=== PATIENT | male | born 1975 | race Caucasian/White ===

== ENCOUNTER 2022-10-28 15:01 | Emergency (ER) | payer MEDICAID, SELFPAY ==
[2022-10-28 15:09] VITALS: BP 128/85; PULSE 74; RESP 18; TEMP 36.6; O2SAT 97
--- NOTE | 2022-10-28 15:12 | ED_ITS ---
HPI - General Adult General Chief complaint: Extremity Pain/Injury, Lower Stated complaint: right ankle injury Time Seen by Provider: 10/28/22 15:07 Source: patient Mode of arrival: ambulatory Limitations: no limitations History of Present Illness HPI narrative: [age] year male coming in today after a right ankle injury. He stepped off a boulder onto the ground, right into a hole where he felt immediate pain in the right ankle. He complains of swelling on the lateral ankle. He states that he was able to walk but it was really very uncomfortable for him. The pain has progressively gotten worse over the last couple of hours. Related Data Allergies Allergy/AdvReac Type Severity Reaction Status Date / Time No Known Drug Allergies Allergy Verified 10/28/22 15:08 Review of Systems Status of ROS: Reports: 6 or more systems reviewed and unremarkable except as noted in History and below [facility] Social History Smoking Status: Current every day smoker What tobacco products do you use: cigarettes Smoking packs per day: 1 Smoking cigarettes per day: 20.0 Years smoked: 32 Smoking pack-years: 32.00 Do you use any of these nicotine containing products: None Second hand tobacco smoke exposure: No How often do you have a drink containing alcohol: never How often do you have six or more drinks on one occasion: Never AUDIT-C Alcohol total score: 0 Non-prescribed substance use: denies use and marijuana (any form) service: No Exam Narrative: Exam Narrative: Well-nourished well-developed patient in no acute distress. Alert and oriented. Answers questions appropriately. Mood and affect are appropriate. Thoughts are goal oriented and rational. No tangential or magical thinking noted. Patient speaks in full sentences without needing to catch his breath. HEENT: Normocephalic atraumatic. Pupils are equally round reactive to light. Extraocular muscles are intact. Conjunctivae are moist without any icterus n oted. Moist mucous membranes. Extremities: Left lower extremity without abnormality. Right lower extremity shows significant swelling over the lateral malleolus and tenderness to palpation in that area. There is no broken skin, no bruising or erythema noted. Skin: Well perfused without any obvious rashes. Const: Vital Signs, click to edit/add: Vital Signs - 24 hr 10/28/22 15:09 Temperature 97.8 F Pulse Rate [Pulse Oximeter] 74 Respiratory Rate 18 Blood Pressure [Le ft Upper Arm] 128/85 Pulse Oximetry 97 Oxygen Delivery Me thod Room Air Course Course Hospital Course: Ankle x-ray, read by me, does not show any acute fractures. Vital Signs Vital signs: Initial Vital Signs Temperature 97.8 F 10/28/22 15:09 Temperature Source Temporal Artery Scan 10/28/22 15:09 Pulse Rate 74 10/28/22 15:09 Pulse Rhythm Regular 10/28/22 15:09 Respiratory Rate 18 10/28/22 15:09 Blood Pressure 128/85 10/28/22 15:09 Blood Pressure Mean 99 10/28/22 15:09 Blood Pressure Position Sitting 10/28/22 15:09 Pulse Oximetry 97 10/28/22 15:09 Oxygen Delivery Method Room Air 10/28/22 15:09 Vital Signs Temperature 97.8 F 10/28/22 15:09 Pulse Rate 74 10/28/22 15:09 Respiratory Rate 18 10/28/22 15:09 Blood Pressure 128/85 10/28/22 15:09 Pulse Oximetry 97 10/28/22 15:09 Oxygen Delivery Method Room Air 10/28/22 15:09 Temperature 97.8 F 10/28/22 15:09 Pulse Rate 74 10/28/22 15:09 Respiratory Rate 18 10/28/22 15:09 Blood Pressure 128/85 10/28/22 15:09 Pulse Oximetry 97 10/28/22 15:09 Oxygen Delivery Method Room Air 10/28/22 15:09 Medical Decision Making MDM Narrative Medical decision making narrative: Ankle sprain. We discussed symptomatic treatment and reasons for follow-up. Imaging Data X-ray ankle: Attestation: I have reviewed the pertinent imaging results. Radiologist's impression: Right ankle, 3 views. Comparison: None. Findings/Impression: Bones: Alignment is normal. No displaced fractures or bone lesions. Joint spaces: Unremarkable. Soft tissues: Unremarkable. Discharge Plan Discharge Clinical Impression: Ankle sprain and strain Patient Disposition: Home, Self-Care Condition: Stable Additional Instructions: Elevate the leg as much as possible to decrease swelling, this will also help with pain then. Okay to use ibuprofen or Tylenol as needed for discomfort. Recommend staying off your feet until swelling subsides and the pain is better. Then, activity as tolerated. Also recommend icing the ankle for 20 minutes at a time multiple times today, do not apply ice directly to skin. Follow Up/Referrals: Alphonso Chambers MD [Primary Care Provider] - Stand Alone Forms: zintin Info Instructions
--- NOTE | 2022-10-28 15:22 | CRLHL7_ITS ---
For Patients: As a result of the Century Cures Act, medical imaging exams and procedure reports are released immediately into your electronic medical record. You may view this report before your referring provider. If you have questions, please contact your health care provider. Indication: Trauma. Technique: Right ankle, 3 views. Comparison: None. Findings/Impression: Bones: Alignment is normal. No displaced fractures or bone lesions. Joint spaces: Unremarkable. Soft tissues: Unremarkable. Dictated by Marlo Caicedo MD @ 10/28/2022 3:43:56 PM (Electronically Signed)
== END 2022-10-28 16:18 | disposition home or self-care (01) ==
LOC: ED 15:57
PROVIDERS: Emergency Provider Family Medicine; PCP Family Medicine
DX: S93.401A Sprain of unspecified ligament of right ankle, initial encounter (principal); W17.2XXA Fall into hole, initial encounter
CPT/HCPCS: 73610; 99283; 99284

== ENCOUNTER 2024-05-24 20:25 | Emergency (ER) | payer MEDICAID, SELFPAY ==
--- OUTSIDE RECORDS SUMMARY | 2024-05-24 20:27 | XMS_ITS | Clinical Summary ---
Author Organization [facility] Address [place], [place] [address] Care Team Providers Care Security Systems Engineer Name Role Phone Kain Randhawa MD Primary Care P rovider Allergies Active Allergy Reactions Criticality Noted Date Comments Metoclopramide Anxiety Low 02/28/2021 Akathesia, extreme anxiety Medications ondansetron (ZOFRAN ODT) 4 mg disintegrating tabletIndications:I nfluenza A,Vomiting, unspecified vomiting type, unspecified whether nausea present Place 1 Tablet (4 mg) on the tongue every 8 hours if needed for Nausea/Vomi ting. 12 Tablet 5 Active Active Problems Problem Noted Date Diagnosed Date Neck pain 05/15/2024 Back pain without radiation 05/15/2024 Bunionette of left foot 04/10/2024 Chronic right shoulder pain 04/10/2024 Sore throat 04/20/2021 Tubular adenoma 03/31/2020 Overview (05/13/2020): multiple benign tubular adenoma; repeat colonoscopy in 3 years Tobacco use 02/23/2015 Primary insomnia 02/23/2015 GERD (gastroesophageal reflux disease) 4 Polyp of colon Rectal bleeding Encounters Date Type Department Care Team Description 05/23/2024 2:45 PM WOODWORKING MACHINE OPERATOR - 05/23/2024 4:37 PM WOODWORKING MACHINE OPERATOR [facility] [address] [place] [address] Kristen Golden PA Influenza A (Primary Dx); Vomiting, unspecified vomiting type, unspecified whether nausea present Discharge Disposition: Home Self Care 05/23/2024 Travel 05/23/2024 Nurse Triage [facility] [address] [place] [address] Kain Randhawa MD Vomiting 05/21/2024 8:45 AM WOODWORKING MACHINE OPERATOR Office Visit [facility] [place] [address] [address] [place] [address] Prakash John DPM Follow Up (Left foot pain) 05/21/2024 Travel 05/15/2024 E-Visit [facility] [address] [place] [address] Kain Randhawa MD Physical therapy 04/15/2024 10:20 AM WOODWORKING MACHINE OPERATOR Ancillary Procedure [facility] [address] [place] [address] 04/15/2024 Travel 04/10/2024 1:00 PM WOODWORKING MACHINE OPERATOR Office Visit [facility] [address] [place] [address] Kain Randhawa MD Foot Problem (Referral for podiatry ); Follow Up 04/10/2024 Travel 03/15/2024 10:45 AM WOODWORKING MACHINE OPERATOR Ancillary Procedure [facility] [address] [place] [address] 03/15/2024 9:35 AM WOODWORKING MACHINE OPERATOR Office Visit [facility] [address] [place] [address] Kain Randhawa MD Concerns (Would like to get some testing done due to pain problems. There is a family history of autoimmune problems. 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 ) 03/15/2024 Travel from Last 3 Months Immunizations Name Administration Dates Next Due Td, Preservative Free (age >= 7 Years) 7 Tdap 10/06/2006 Family History Medical History Relation Name Comments Good Health Brother Abnormal EKG Father Other Father in his sle ep, heavy smoker and drinker Seizures Father brain injury Good Health Mother Heart attack Mother Other Mother Fibromyalgia Stroke Mother Good Health Sister 1 Good Health Sister 2 Relation Name Status Comments Brother Father Mother Alive Sister 1 Sister 2 Social History Tobacco Use Types Packs/Day Years Used Date Smoking Tobacco: Every Day Cigarettes 1 35.5 Started: 11/29/1988 Smokeless Tobacco: Never Tobacco Cessation:Ready to Q uit: Not Asked; Counseling Given: Yes Alcohol Use Standard Drinks/Week Comments Not Currently 0 (1 standard drink = 0.6 oz pur e alcohol) PHQ-2 Answer Date Recorded PHQ-2 TOTAL SCORE 2 03/15/2024 Social Connections Answer Date Recorded Do you often feel lonely or isolated from those around you? 0 11/30/2023 Financial Resource Strain Answer Date R ecorded Difficulty of Paying Living Expenses 3 11/30/2023 Difficulty of Paying Living Expenses Not on file 11/30/2023 Food Insecurity Answer Date Recorded Do you worry your food will run out before you are able to buy more? 1 11/30/2023 Transportation Needs Answer Date Record ed Does lack of transportation keep you from medica l appointments? 1 11/30/2023 Does lack of transportation keep you from work, meetings or getting things that you need? 1 11/30/2023 Housing Stability Answer Date Recorded What is your housing situation today? 1 11/30/2023 Interpersonal Safety Answer Date Record ed Are you being hit, kicked, p ushed or yelled at (see row info)? No 05/23/2024 Interpersonal Safety Abuse 12 - 18 Not on file 05/23/2024 Interpersonal Safety Ambulatory Vulnerability No t on file 05/23/2024 Utilities Answer Date Recorded Do you have trouble paying f or utilities (for example, heat, electricity, water, phone)? 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 Not on file Not on file Obstetrics History Last Filed Vital Signs Vital Sign Reading Time Taken Comments Blood Pressure 159/95 05/23/2024 2:47 PM WOODWORKING MACHINE OPERATOR Pulse 68 05/23/2024 2:47 PM WOODWORKING MACHINE OPERATOR Temperature 36.9 C (98.4 F) 05/23/2024 2:47 PM WOODWORKING MACHINE OPERATOR Respiratory Rate 18 05/23/2024 2:47 PM WOODWORKING MACHINE OPERATOR Oxygen Saturation 95% 05/23/2024 2:47 PM WOODWORKING MACHINE OPERATOR Inhaled Oxygen Concentration - - Weight 96.6 kg (213 lb) 05/23/2024 2:47 PM WOODWORKING MACHINE OPERATOR Height 190.5 cm (6' 3) 05/23/2024 2:47 PM WOODWORKING MACHINE OPERATOR Body Mass Index 26.62 05/23/2024 2:47 PM WOODWORKING MACHINE OPERATOR Plan of Treatment Upcoming Encounters Date Type Department Care Team (Late st Contact Info) Description 06/17/2024 10:30 AM WOODWORKING MACHINE OPERATOR Office Visit [facility] [address] [place] [address] Hao Talbot MD [address] [place] [address] Health Maintenance Due Date Last Done Comments Pneumococcal series for age 6-49 (1 of 2 - PCV) 09/28/1995 COVID-19 vaccine series ( - season) 2023 Influenza for age 9-49 12/24/2023 BMI (ht and wt on same day) for age 18+ 11/29/2024 11/30/2023, 08/31/2022, 10/14/2020, Additional history exists Depression screening for age 12+ 03/15/2025 03/15/2024, 11/30/2023, 02/20/2020, Additional history exists Tetanus booster 10/04/2026 10/04/2016, 10/06/2006 Lipids for age 45-75 03/15/2029 03/15/2024, 08/19/2016, 11/27/2013 Colonoscopy through age 75 05/31/2029 05/31/2022, Tdap Completed 10/06/2006 HIV for age 15-65 Completed 03/15/2024 Hepatitis C screening for ag e 18-79 Completed 03/15/2024 Procedures Procedure Name Priority Date/Time Associated Diagnosis Comments INFLUENZA A/B PCR Today 05/23/2024 2:5 5 PM WOODWORKING MACHINE OPERATOR COVID-19 MOLECULAR Today 05/23/2024 2: 55 PM WOODWORKING MACHINE OPERATOR XR FOOT 3 VIEWS LEFT Routine 04/15/2024 10:30 AM WOODWORKING MACHINE OPERATOR Bunionette of left foot XR SHOULDER 4 VIEWS RIGHT Routine 03/15/2024 11:18 AM WOODWORKING MACHINE OPERATOR Right shoulder pain, unspecified chronicity HIV 1/2 ANTIGEN/ANTIBODY FOURTH GENERATION W/RFL (QUEST) Routine 03/15/2024 10:49 AM WOODWORKING MACHINE OPERATOR Encounter for screening for HIV ANTI HCV Routine 03/15/2024 10:49 AM WOODWORKING MACHINE OPERATOR Need for hepatitis C screening test LIPID PANEL W REFLEX MEASURED LDL Routine 03/15/2024 10:49 AM WOODWORKING MACHINE OPERATOR Screening for lipid disorders ANTINUCLEAR ANTIBODY BY IFA Routine 03/15/2024 10:49 AM WOODWORKING MACHINE OPERATOR Arthralgia, unspecified joint RA QUANTITATIVE Routine 03/15/2024 10:49 AM WOODWORKING MACHINE OPERATOR Arthralgia, unspecified joint HEMOGLOBIN A1C Routine 03/15/2024 10:49 AM WOODWORKING MACHINE OPERATOR Screening for diabetes mellitus C-REACTIVE PROTEIN Routine 03/15/2024 10 :49 AM WOODWORKING MACHINE OPERATOR Arthralgia, unspecified joint Fatigue, unspecified type COLONOSCOPY 05/31/2022 2:47 PM WOODWORKING MACHINE OPERATOR from Last 3 Months or Most Recently Relevant to Health Maintenance Results * COVID-19 MOLECULAR (05/23/2024 2:55 PM WOODWORKING MACHINE OPERATOR) COVID 19 [facility] MOLECULAR Not detected Not detected 05/23/2024 3:23 PM WOODWORKING MACHINE OPERATOR [facility] TESTING LABORATORY [facility] 05/23/2024 3:23 PM WOODWORKING MACHINE OPERATOR [facility] Comment:Specimen submitted t o [facility] for testing. Other SPECIMEN FROM NASOPHARYNGEAL STRUCTURE / Unknown Non-Blood / Unknown 05/23/2024 2:55 PM WOODWORKING MACHINE OPERATOR 05/23/2024 2:57 PM WOODWORKING MACHINE OPERATOR Kristen ALMODOVAR MICROBIOLOGY Final Result Performing Organization Address City/[facility]/ZIP Co de Phone Number [facility] [address] [place] [address] * (ABNORMAL) INFLUENZA A/B PCR (05/23/2024 2:55 PM WOODWORKING MACHINE OPERATOR) INFLUENZA A PCR Detected(A) 05/23/2024 3:23 PM WOODWORKING MACHINE OPERATOR [facility] INFLUENZA B PCR NOT Detected 05/23/2024 3:23 PM WOODWORKING MACHINE OPERATOR [facility] Other SPECIMEN FROM NASOPHARYNGEAL STRUCTURE / Unknown Non-Blood / Unknown 05/23/2024 2:55 PM WOODWORKING MACHINE OPERATOR 05/23/2024 2:57 PM WOODWORKING MACHINE OPERATOR Kristen ALMODOVAR MICROBIOLOGY Final Result Performing Organization Address [facility] Co de Phone Number [facility] [address] [place] [address] * XR FOOT 3 VIEWS LEFT (04/15/2024 10:30 AM WOODWORKING MACHINE OPERATOR) Anatomical Region Laterality Modality FEET, FOOT L Computed Radiogr aphy 04/15/2024 10:4 9 AM WOODWORKING MACHINE OPERATOR Narrative 04/15/2024 10:49 AM WOODWORKING MACHINE OPERATOR For Patients: As a result of the Cures Act, medical imaging exams and procedure reports are released immediately into your electronic medical record. You may view this report before your referring provider. If you have questions, please contact your health care provider. INDICATION: Bunion at of the left foot. TECHNIQUE: Three views right foot. FINDINGS: Small bunion distal 1st metatarsal head. Minute plantar and posterior calcaneal enthesophytes. Minor arthritis midfoot. No acute fracture, dislocation or lytic bone destruction. Dictated by Car An MD @ 04/15/2024 10:49:12 AM (Electronically Signed) Procedure Note Marlo An MD - 04/15/2024 For Patients: As a result of the Cures Act, medical imagingexams and procedure reports are released immediately into your electronicmedical record. You may view this report before your referring provider.If you have questions, please contact your health care provider. INDICATION: Bunion at of the left foot. TECHNIQUE: Three views right foot. FINDINGS: Small bunion distal 1st metatarsal head. Minute plantar and posteriorcalcaneal enthesophytes. Minor arthritis midfoot. No acute fracture,dislocation or lytic bone destruction. Dictated by Car An MD @ 04/15/2024 10:49:12 AM (Electronically Signed) Kain Randhawa MD GENERAL IMAGING Final Result * XR SHOULDER 4 VIEWS RIGHT (03/15/2024 11:18 AM WOODWORKING MACHINE OPERATOR) Anatomical Region Laterality Modality SHOULDERS, SHOULDER R Computed R adiography 03/16/2024 10:5 4 AM WOODWORKING MACHINE OPERATOR Narrative 03/16/2024 10:54 AM WOODWORKING MACHINE OPERATOR For Patients: As a result of the Cures Act, medical imaging exams and procedure reports are released immediately into your electronic medical record. You may view this report before your referring provider. If you have questions, please contact your health care provider. INDICATION: Right shoulder pain TECHNIQUE: Shoulder radiograph 5 views right COMPARISON: None FINDINGS: Bone: No acute fractures or aggressive bone lesions are identified. Lateral downsloping of the acromion is present which can predispose this patient to subacromial impingement. Joint: The glenohumeral joint is unremarkable. The acromioclavicular joint has mild osteoarthritis. Soft tissue: Unremarkable. The visualized hemithorax is unremarkable in appearance. No radiopaque foreign bodies are seen. IMPRESSIONS: 1. No acute osseous injuries or abnormalities are noted. 2. Lateral downsloping of the acromion is present which can predispose this patient to subacromial impingement. Dictated by Caleb Florian MD @ 03/16/2024 10:54:00 AM Dictated by: Caleb Florian MD @ 03/16/2024 10:54:07 (Electronically Signed) Procedure Note Caleb Florian MD - 03/16/2024 For Patients: As a result of the 21st Century Cures Act, medical imagingexams and procedure reports are released immediately into your electronicmedical record. You may view this report before your referring provider.If you have questions, please contact your health care provider. INDICATION: Right shoulder pain TECHNIQUE: Shoulder radiograph 5 views right COMPARISON: None FINDINGS: Bone: No acute fractures or aggressive bone lesions are identified.Lateral downsloping of the acromion is present which can predispose thispatient to subacromial impingement. Joint: The glenohumeral joint is unremarkable. The acromioclavicular jointhas mild osteoarthritis. Soft tissue: Unremarkable. The visualized hemithorax is unremarkable inappearance. No radiopaque foreign bodies are seen. IMPRESSIONS: 1. No acute osseous injuries or abnormalities are noted. 2. Lateral downsloping of the acromion is present which can predisposethis patient to subacromial impingement. Dictated by Caleb Florian MD @ 03/16/2024 10:54:00 AM Dictated by: Caleb Florian MD @ 03/16/2024 10:54:07 (Electronically Signed) Sukumar ALMODOVAR GENERAL IMAGING Final Result * HIV 1/2 ANTIGEN/ANTIBODY FOURTH GENERATION W/RFL (QUEST) (03/15/2024 10:49 AM WOODWORKING MACHINE OPERATOR) HIV AG/AB, 4TH GEN NON-REACT SHANTAL NON-REACT SHANTAL [facility] Comment: HIV-1 antigen and HIV-1/HIV-2 antibodies were not detected. There is no laboratory evidence of HIV infection. PLEASE NOTE: This information has been disclosed to you from records whose confidentiality may be protected by state law. If your state requires such protection, then the state law prohibits you from making any further disclosure of the information without the specific written consent of the person to whom it pertains, or as otherwise permitted by law. A general authorization for the release of medical or other information is NOT sufficient for this purpose. For additional information please refer to http://education.e-volo.Analogy Co./faq/HWQ494 (This link is being provided for informational/ educational purposes only.) The performance of this assay has not been clinically validated in patients less than 2 years old. Blood BLOOD SPECIMEN / Unknown 03/15/2024 10:49 AM WOODWORKING MACHINE OPERATOR 03/15/2024 10:50 AM WOODWORKING MACHINE OPERATOR Kain Randhawa MD SEND OUTS Final Result Performing Organization Address [facility]/ZIP Co de Phone Number [facility] [address] [place] [address], [facility] [address] [place] [address] * ANTINUCLEAR ANTIBODY BY IFA (03/15/2024 10:49 AM WOODWORKING MACHINE OPERATOR) TEENA SCREEN, IFA NEGATIVE NEGATIVE [facility] Comment: TEENA IFA is a first line screen for detecting the presence of up to approximately 150 autoantibodies in various autoimmune diseases. A negative TEENA IFA result suggests an TEENA-associated autoimmune disease is not present at this time, but is not definitive. If there is high clinical suspicion for Sjogren's syndrome, testing for anti-SS-A/Ro antibody should be considered. Anti-Fatimah-1 antibody should be considered for clinically suspected inflammatory myopathies. AC-0: Negative International Consensus on TEENA Patterns (https://doi.org/10.1515/mvuw-8204-9698) For additional information, please refer to http://education.Abigail Stewart/faq/YNR895 (This link is being provided for informational/ educational purposes only.) Blood BLOOD SPECIMEN / Unknown 03/15/2024 10:49 AM WOODWORKING MACHINE OPERATOR 03/15/2024 10:50 AM WOODWORKING MACHINE OPERATOR Kain Randhawa MD CHEMISTRY Final Result [facility] [address] [place] [address], [facility] [address] [place] [address] * HEMOGLOBIN A1C (03/15/2024 10:49 AM WOODWORKING MACHINE OPERATOR) HEMOGLOBIN A1C 5.4 <5.7 % of total Hgb [facility] Comment: For the purpose of screening for the presence of diabetes: <5.7% Consistent with the absence of diabetes 5.7-6.4% Consistent with increased risk for diabetes (prediabetes) > or =6.5% Consistent with diabetes This assay result is consistent with a decreased risk of diabetes. Currently, no consensus exists regarding use of hemoglobin A1c for diagnosis of diabetes in children. According to [place] Diabetes Association (ADA) guidelines, hemoglobin A1c <7.0% represents optimal control in non- diabetic patients. Different metrics may apply to specific patient populations. Standards of Medical Care in Diabetes(ADA). Blood BLOOD SPECIMEN / Unknown 03/15/2024 10:49 AM WOODWORKING MACHINE OPERATOR 03/15/2024 10:50 AM WOODWORKING MACHINE OPERATOR Kain Randhawa MD CHEMISTRY Final Result [facility] [address] [place] [address], [facility] [address] [place] [address] * (ABNORMAL) LIPID PANEL W REFLEX MEASURED LDL [[id number]] (03/15/2024 10:49 AM WOODWORKING MACHINE OPERATOR) [facility] Signature CHOLESTEROL, TOTAL 172 <200 mg/dL [facility] HDL CHOLESTEROL 44 > OR = 40 mg/dL [facility] TRIGLYCERIDES 111 <150 mg/dL [facility] LDL-CHOLESTEROL 107(H) mg/dL (calc) [facility] Comment: Reference range: <100 Desirable range <100 mg/dL for primary prevention; <70 mg/dL for patients with CHD or diabetic patients with > or = 2 CHD risk factors. LDL-C is now calculated using the Eleuterio calculation, which is a validated novel method providing better accuracy than the Friedewald equation in the estimation of LDL-C. Jefferson NEGRON et al. JOEL. 2013;310(19): 4616-3225 (http://education.BioNitrogen.Analogy Co./faq/WLB708) CHOL/HDLC RATIO 3.9 <5.0 (calc) [facility] NON HDL CHOLESTEROL 128 <130 mg/dL (calc) [facility] Comment: For patients with diabetes plus 1 major ASCVD risk factor, treating to a non-HDL-C goal of <100 mg/dL (LDL-C of <70 mg/dL) is considered a therapeutic option. Blood BLOOD SPECIMEN / Unknown 03/15/2024 10:49 AM WOODWORKING MACHINE OPERATOR 03/15/2024 10:50 AM WOODWORKING MACHINE OPERATOR Kain Randhawa MD CHEMISTRY Final Result Performing Organization Address City/[facility]/ZIP Co de Phone Number [facility] [address] [place] [address], [facility] [address] [place] [address] * ANTI HCV (03/15/2024 10:49 AM WOODWORKING MACHINE OPERATOR) HEPATITIS C ANTIBODY NON-REACTI VE NON-REACT SHANTAL [facility] Comment: HCV antibody was non-reactive. There is no laboratory evidence of HCV infection. In most cases, no further action is required. However, if recent HCV exposure is suspected, a test for HCV RNA (test code 31992) is suggested. For additional information please refer to http://education.Turbogen/faq/BTG01s8 (This link is being provided for informational/ educational purposes only.) Blood BLOOD SPECIMEN / Unknown 03/15/2024 10:49 AM WOODWORKING MACHINE OPERATOR 03/15/2024 10:50 AM WOODWORKING MACHINE OPERATOR Kain Randhawa MD SEND OUTS Final Result Performing Organization Address City/[facility]/ZIP Co de Phone Number [facility] [address] [place] [address], [facility] [address] [place] [address] * RA QUANTITATIVE (03/15/2024 10:49 AM WOODWORKING MACHINE OPERATOR) RHEUMATOID FACTOR <10 <14 IU/mL [facility] Blood BLOOD SPECIMEN / Unknown 03/15/2024 10:49 AM WOODWORKING MACHINE OPERATOR 03/15/2024 10:50 AM WOODWORKING MACHINE OPERATOR Kain Randhawa MD SEND OUTS Final Result [facility] [address] [place] [address], [place] [phone] [facility] [address] [facility] [place] [address] * C-REACTIVE PROTEIN (03/15/2024 10:49 AM WOODWORKING MACHINE OPERATOR) C-REACTIVE PROTEIN 4.1 <8.0 mg/L [facility] Blood BLOOD SPECIMEN / Unknown 03/15/2024 10:49 AM WOODWORKING MACHINE OPERATOR 03/15/2024 10:50 AM WOODWORKING MACHINE OPERATOR Kain Randhawa MD CHEMISTRY Final Result [facility] [address] [place] [address], [place] [phone] [facility] [address] [place] [address] * COLONOSCOPY (05/31/2022 2:47 PM WOODWORKING MACHINE OPERATOR) 05/31/2022 2:47 PM WOODWORKING MACHINE OPERATOR Narrative Transcriptions Mitali Jensen DO - 06/01/2022 8:09 PM CST Patient Name: Que Braun Procedure Date: 05/31/2022 Gender: Male Date of : 1975 Admit Type: Ambulatory Procedure: Colonoscopy Proceduralist: Mitali Jensen MD Referring MD: Mitali Jensen MD Indications/Pre-Op Diagnosis: Epigastric abdominal pain Medications: Propofol per Anesthesia, MonitoredAnesthesia Care Procedure Description: The patient had risks, benefits and alternatives explained to andgave informed consent. The patient had a stable cardiopulmonary status and judged an adequate candidate for conscious sedation. The endoscope [id number] was passed through the anus with the intention of advancing to the cecum. The scope was advanced to the splenic flexure before the procedure was aborted. Medications were given. The colonoscopy was technically difficult and complex due topoor bowel prep with stool present. Successful completion of the procedure was aided by lavage. The patient tolerated the procedure well. The quality of the bowel preparation was poor. No anatomical landmarkswere photographed. Complications: No immediate complications. Estimated blood loss: Minimal. Estimated Blood Loss & Specimen: Estimated blood loss was minimal. Specimen collected - Yes and sent to Laboratory Findings: The perianal and digital rectal examinations were normal. Pertinent negatives include normal sphincter tone and normal prostate (size, shape, and consistency). A 5 mm polyp was found in the descending colon. The polyp wassessile. The polyp was removed with a hot snare. Resection and retrieval were complete. Verification of patient identification for the specimen was done. Estimated blood loss was minimal. Impressions/Post-Op Diagnosis: - Preparation of the colon was poor. - One 5 mm polyp in the descending colon, removed with a hot snare. Resected and retrieved. Recommendation: - Discharge patient to home (ambulatory). - Resume previous diet. - Continue present medications. - Await pathology results. - Repeat colonoscopy in 5-10 years for surveillance based onpathology results. Mitali Jensen MD 06/01/2022 8:09:42 PM This report has been signed electronically. Note Initiated On: 05/31/2022 2:47 PM Mitali Jensen DO PROCEDURE ORD Final Res ult from Last 3 Months or Most Recently Relevant to Health Maintenance Additional Health Concerns Infection Onset Date Last Indicated INFLUENZA 05/23/2024 05/23/2024 Insurance MEDICAID FORMERLY [facility] [place] [address] ACUITY ACUITY * Guarantor: JEANETTE REID (DOT,PRE-EMP,RESP,INJ,AUDIO) Account Type Relation to Patient Date of Phone Billing Address [facility] Employer [address] [place] [address] Advance Directives * Full Code (Latest Code Status on File) Date Activated Date Inactivated Comments 09/07/2022 7:12 AM 09/07/2022 12:35 PM Question Answer Comments Code Status Discussion: Reviewed Preferences * Full Code Date Activated Date Inactivated Comments 09/06/2022 10:35 AM 09/07/2022 7:12 AM Question Answer Comments Code Status Discussion: Unable to Assess Preferences, Provider to review later * Full Code Date Activated Date Inactivated Comments 05/31/2022 12:46 PM 05/31/2022 6:14 PM Question Answer Comments Code Status Discussion: Discussed * Full Code Date Activated Date Inactivated Comments 03/31/2020 2:56 PM 03/31/2020 8:50 PM Question Answer Comments Code Status Discussion: Discussed Care Teams Security Systems Engineer Relationship Specialty Start Date End Date Kain Randhawa MD [address] [place] [address] [address] PCP - General Family Practice 03/15/24
[2024-05-24 20:29] VITALS: BP 139/83; PULSE 89; RESP 18; TEMP 37.1; O2SAT 97; BMI 26.7
--- NOTE | 2024-05-24 20:40 | ED_ITS ---
HPI - General Adult General Date Seen: 05/24/24 Chief complaint: Nausea/Vomiting Stated complaint: dry heaving, headaches, tested pos for Flu 05/23 Time Seen by Provider: 05/24/24 20:40 History of Present Illness HPI narrative: 48-year-old male presenting to the ER today for nausea and vomiting, dry heaving, headaches. He tested positive for influenza a yesterday He also has a past medical history of GERD, colon polyps, tobacco use. Per records obtained through [facility] link he was in the ER in [place] yesterday. He was seen for chills ongoing for a few nights. He is allergic to Reglan. Temperature was 98.4?. Blood pressure was 159/95. Pulse 68. He was positive for influenza a by PCR. Negative for COVID. Treated with Toradol and Zofran in the ER. Records indicate that he was Given a prescription for Zofran oral dissolving tablet. History from patient is that he began to be sick on Monday with fever chills, myalgias, headache, cough, nausea and vomiting. He has had a lot of nausea and protracted vomiting for the past 3 days has not been able to keep down any solid food and very little liquids. He is not having any diarrhea. In fact he only passed 1 small hard bowel movement this morning and had not had any BMs for coup le of days prior to that. He does say that he was in the ER in [place] yesterday, diagnosed with influenza a, but did not receive a prescription for Zofran. He has had no medications at home to help with nausea and vomiting and as result has had repetitive vomiting today. He is feeling dehydrated and weak. He came to the ER desiring something to stop the vomiting and help him get rehydrated He is not having much abdominal pain. He does have a cough. No shortness of breath. No chest pain. He has no history of asthma, underlying lung disease. No history of heart disease, diabetes. No cancer. No immunosuppression. Related Data Allergies Allergy/AdvReac Type Severity Reaction Status Date / Time No Known Drug Allergies Allergy Verified 10/28/22 15:08 [facility] Social History Smoking Status: Current every day smoker What tobacco products do you use: cigarettes Smoking packs per day: 1 Smoking cigarettes per day: 20.0 Years smoked: 32 Smoking pack-years: 32.00 Do you use any of these nicotine containing products: None Second hand tobacco smoke exposure: No How often do you have a drink containing alcohol: never How often do you have six or more drinks on one occasion: Never AUDIT-C Alcohol total score: 0 Non-prescribed substance use: denies use and marijuana (any form) service: No Exam Narrative: Exam Narrative: Constitutional: Appears well-developed and well-nourished. Alert. Conversant. Non toxic. HENT: Head: Atraumatic. Nose: Nose normal. Mouth/Throat: Oral mucosa is clear but dry. no trismus. Pharynx normal. Tonsils symmetric. No tonsillar enlargement, erythema, or exudate. Eyes: Conjunctivae normal. EOM normal. Pupils equal, round, and reactive to light. No scleral icterus. Neck: Normal range of motion. Neck supple. No tracheal deviation present. Cardiovascular: Normal rate, regular rhythm. No gallop. No friction rub. No murmur heard. Symmetric radial artery pulses Pulmonary/Chest: Effort normal. Occasional cough. No stridor. No respiratory distress. No wheezes. No rales. No rhonchi . No tenderness. Abdominal: Soft. Bowel sounds normal. No distension. No mass. No tenderness. No rebound. No guarding. No CVA tenderness. Musculoskeletal: RUE: Normal range of motion. No tenderness. No deformity LUE: Normal range of motion. No tenderness. No deformity RLE: Normal range of motion. No edema. No tenderness. No deformity LLE: Normal range of motion. No edema. No tenderness. No deformity Neurological: Alert and oriented to person, place, and time. Normal strength. CN II-VII intact. No sensory deficit. GCS eye subscore is 4. GCS verbal subscore is 5. GCS motor subscore is 6. Normal coordination Skin: Skin is warm and dry. No rash noted. No pallor. Normal capillary refill. Psychiatric: Normal mood. Normal affect. Const: Vital Signs, click to edit/add: Vital Signs - 24 hr 05/24/24 20:29 Temperature 98.8 F Pulse Rate [Left P ulse Oximeter] 89 Respiratory Rate 18 Blood Pressure [Ri ght Upper Arm] 139/83 Pulse Oximetry 97 Oxygen Delivery Me thod Room Air Course Course ED Course: Recheck-L of saline almost in. Feeling better after Zofran. P.o. challenging with water and crackers Reevaluation(s) Reevaluation #1: Recheck-10 30. Feeling much better. Tolerated full liquids and crackers. Feels comfortable discharging home with his family. Vital Signs Vital signs: Initial Vital Signs Temperature 98.8 F 05/24/24 20:29 Temperature Source Temporal Artery Scan 05/24/24 20:29 Pulse Rate 89 05/24/24 20:29 Pulse Rhythm Regular 05/24/24 20:29 Respiratory Rate 18 05/24/24 20:29 Blood Pressure 139/83 05/24/24 20:29 Blood Pressure Mean 101 05/24/24 20:29 Blood Pressure Position Sitting 05/24/24 20:29 Pulse Oximetry 97 05/24/24 20:29 Oxygen Delivery Method Room Air 05/24/24 20:29 Vital Signs Temperature 98.8 F 05/24/24 20:29 Pulse Rate 89 05/24/24 20:29 Respiratory Rate 18 05/24/24 20:29 Blood Pressure 139/83 05/24/24 20:29 Pulse Oximetry 97 05/24/24 20:29 Oxygen Delivery Method Room Air 05/24/24 20:29 Temperature 98.8 F 05/24/24 20:29 Pulse Rate 89 05/24/24 20:29 Respiratory Rate 18 05/24/24 20:29 Blood Pressure 139/83 05/24/24 20:29 Pulse Oximetry 97 05/24/24 20:29 Oxygen Delivery Method Room Air 05/24/24 20:29 Medications Administered Medications: Discontinued Medications Generic Name Dose Route Start Last Admin Trade Name Freq PRN Reason Stop Dose Admin Sodium Chloride 1,000 mls @ 1,000 mls/hr 05/24/24 21:00 05/24/24 21:59 0.9 % Sodium Chloride 1000 Ml IV 05/24/24 21:59 Infused .Q1H JARVIS Infusion Ketorolac Tromethamine 15 mg 05/24/24 20:55 05/24/24 21:19 Ketorolac 15 Mg/Ml Inj IVP 05/24/24 20:56 15 mg ONCE ONE Administration Ondansetron HCl 4 mg 05/24/24 20:55 05/24/24 21:18 Ondansetron 2 Mg/Ml Inj IVP 05/24/24 20:56 4 mg ONCE ONE Administration Medical Decision Making MDM Narrative Medical decision making narrative: This patient presents for evaluation of nausea and vomiting associated with URI symptoms including fever, chills, headache, body ache, cough, sore throat. He was tested yesterday at [facility] and positive for influenza A. He is outside the window for any benefit from Tamiflu and does not have any underlying heart or lung disease or other indication for Tamiflu despite being outside the window.. This is consistent with an upper respiratory tract infection.There is no signs at this point of serious bacterial infection such as OM, RPA, epiglottitis, PRESS CLIPPINGS CUTTER AND PASTER, strep pharyngitis, pneumonia, sinusitis, meningitis, bacteremia, serious bacterial infection. Given clear lungs, fever curve, no hypoxia and no respiratory distress I do not feel a CXR is indicated at this poi nt as the probability of bacterial pneumonia is very unlikely. He does have significant nausea and vomiting with dehydration. Fortunately abdominal exam is reassuring. I do not think he needs CT scan due to look for conditions such as appendicitis, colitis, cholecystitis, bowel obstruction, diverticulitis at this time. Treated with IV fluids and Zofran with improvement here in the ER.. Close followup with primary care physician is indicated. Return to ED for fever > 103, protracted vomiting, dehydration,, confusion, or other worsening. Instymeds prescription for Zofran 0 DT-10 tablet. Lab Data Labs: Lab Results 05/24/24 Range/Units 21:00 WBC 7.61 (4.50-11.00) K/uL RBC 4.79 (4.30-5.90) m/uL Hgb 14.5 (13.5-17.5) gm/dL Hct 42.8 (37.0-53.0) % MCV 89 (80-100) fL MCH 30 (26-34) pg MCHC 34 (32-36) gm/dL RDW Coeff of Elkin 12.4 (11.5-15.5) % Plt Count 166 (140-440) K/uL Neut % (Auto) 77.5 H (42.0-72.0) % Lymph % (Auto) 14.7 L (20-44) % [place] % (Auto) 7.5 (0.0-11.0) % Eos % (Auto) 0.0 (0.0-7.0) % Baso % (Auto) 0.3 (0.0-3.0) % Neut # (Auto) 5.90 (1.7-7.0) K/uL Lymph # (Auto) 1.10 (0.90-2.90) K/uL [place] # (Auto) 0.60 (0.00-0.90) K/UL Eos # (Auto) 0.00 (0.00-0.50) K/uL Baso # (Auto) 0.02 (0.00-0.30) K/uL Abs Immat Gran (auto) 0.00 (0.00-0.30) K/uL Imm/Tot Granulo (auto) 0.0 % Sodium 139 (135-149) mmol/L Potassium 3.8 (3.6-5.1) mmol/L Chloride 107 (96-114) mmol/L Carbon Dioxide 19 L (20-32) mmol/L Anion Gap 13 (7-15) mEq/L BUN 13 (5-24) mg/dL Creatinine 0.9 (0.5-1.5) mg/dL Estimated Creat Clear 121.27 Estimated GFR 106 ml/min Glucose 116 H (60-115) mg/dL Calcium 9.2 (8.4-10.6) mg/dL Discharge Plan Discharge Clinical Impression: Influenza A, Dehydration, Vomiting Patient Disposition: Home, Self-Care Condition: Stable Instructions: Influenza (ED), Acute Nausea and Vomiting (DC) Additional Instructions: As we discussed, rest and stay home until your symptoms are improving and after you have been afebrile for 24 hours. Drink plenty of fluids, and eat other healthy foods such as chicken soup, Gatorade to help stay hydrated and keep her strength up. The treat your headache and body aches and fever use Tylenol or ibuprofen as needed. Use the Zofran to help treat nausea so the you can keep fluids down to stay hydrated If you have worsening vomiting, dehydration, worsening abdominal pain, or if you are having worsening cough or trouble breathing, or any other concerns please come back to the ER right away. Follow Up/Referrals: Alphonso Chambers MD [Primary Care Provider] - Stand Alone Forms: [employer] Info Instructions
[2024-05-24 21:17] LABS: Basophils Absolute Auto 0.02 K/uL (0.00-0.30); Basophils Percent Auto 0.3 % (0.0-3.0); Hematocrit* 42.8 % (37.0-53.0); Hemoglobin* 14.5 gm/dL (13.5-17.5); Lymphocytes Percent Auto 14.7 % (20-44); Mean Corpuscular HGB Conc 34 gm/dL (32-36); Mean Corpuscular Hemoglobin 30 pg (26-34); Mean Corpuscular Volume 89 fL (80-100); Monocytes Percent Auto 7.5 % (0.0-11.0); Neutrophils Percent Auto 77.5 % (42.0-72.0); Platelet Count* 166 K/uL (140-440); RDW Coefficient of Variation % 12.4 % (11.5-15.5); Red Blood Count* 4.79 m/uL (4.30-5.90); White Blood Count* 7.61 K/uL (4.50-11.00)
--- OUTSIDE RECORDS SUMMARY | 2024-05-24 21:17 | XMS_ITS | Clinical Summary ---
Author Organization [facility] Address [place], [place] [address] Care Team Providers Care Mortgage Loan Specialist Name Role Phone Kain Randhawa MD Primary [...] Department Care Team Description 05/23/2024 2:45 PM MOTORBOAT MECHANIC HELPER - 05/23/2024 4:37 PM MOTORBOAT MECHANIC HELPER Emergency [facility] [address] [place] [address] Kristen Golden PA Influenza A (Primary Dx); Vomiting, unspecified vomiting type, unspecified whether nausea present Discharge Disposition: Home Self Care 05/23/2024 Travel 05/23/2024 Nurse Triage [facility] [address] [facility] [place] [address] Kain Randhawa MD Vomiting 05/21/2024 8:45 AM MOTORBOAT MECHANIC HELPER Office Visit [facility] [place] [address] [address] [place] [address] Prakash John DPM Follow Up (Left foot pain) 05/21/2024 Travel 05/15/2024 E-Visit [facility] [address] [place] [address] Kain Randhawa MD Physical therapy 04/15/2024 10:20 AM MOTORBOAT MECHANIC HELPER Ancillary Procedure [facility] [address] [facility] [address] 04/15/2024 Travel 04/10/2024 1:00 PM MOTORBOAT MECHANIC HELPER Office Visit [facility] [address] [place] [address] Kain Randhawa MD Foot Problem (Referral for podiatry ); Follow Up 04/10/2024 Travel 03/15/2024 10:45 AM MOTORBOAT MECHANIC HELPER Ancillary Procedure [facility] [address] [place] [address] 03/15/2024 9:35 AM MOTORBOAT MECHANIC HELPER Office Visit [facility] [address] [place] [address] Kain Randhawa MD Concerns (Would like to get some testing done due to pain problems. There is a family history of autoimmune problems. 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 file Not on file Obstetrics History Last Filed Vital Signs Vital Sign Reading Time Taken Comments Blood Pressure 159/95 05/23/2024 2:47 PM MOTORBOAT MECHANIC HELPER Pulse 68 05/23/2024 2:47 PM MOTORBOAT MECHANIC HELPER Temperature 36.9 C (98.4 F) 05/23/2024 2:47 PM MOTORBOAT MECHANIC HELPER Respiratory Rate 18 05/23/2024 2:47 PM MOTORBOAT MECHANIC HELPER Oxygen Saturation 95% 05/23/2024 2:47 PM MOTORBOAT MECHANIC HELPER Inhaled Oxygen Concentration - - Weight 96.6 kg (213 lb) 05/23/2024 2:47 PM MOTORBOAT MECHANIC HELPER Height 190.5 cm (6' 3) 05/23/2024 2:47 PM MOTORBOAT MECHANIC HELPER Body Mass Index 26.62 05/23/2024 2:47 PM MOTORBOAT MECHANIC HELPER Plan of Treatment Upcoming Encounters Date Type Department Care Team (Late st Contact Info) Description 06/17/2024 10:30 AM MOTORBOAT MECHANIC HELPER Office Visit [facility] [address] [place] [address] Hao Talbot MD [address] [place] [address] Health Maintenance Due Date Last Done Comments [...] A/B PCR Today 05/23/2024 2:5 5 PM MOTORBOAT MECHANIC HELPER COVID-19 MOLECULAR Today 05/23/2024 2: 55 PM MOTORBOAT MECHANIC HELPER XR FOOT 3 VIEWS LEFT Routine 04/15/2024 10:30 AM MOTORBOAT MECHANIC HELPER Bunionette of left foot XR SHOULDER 4 VIEWS RIGHT Routine 03/15/2024 11:18 AM MOTORBOAT MECHANIC HELPER Right shoulder pain, unspecified chronicity HIV 1/2 ANTIGEN/ANTIBODY FOURTH GENERATION W/RFL (QUEST) Routine 03/15/2024 10:49 AM MOTORBOAT MECHANIC HELPER Encounter for screening for HIV ANTI HCV Routine 03/15/2024 10:49 AM MOTORBOAT MECHANIC HELPER Need for hepatitis C screening test LIPID PANEL W REFLEX MEASURED LDL Routine 03/15/2024 10:49 AM MOTORBOAT MECHANIC HELPER Screening for lipid disorders ANTINUCLEAR ANTIBODY BY IFA Routine 03/15/2024 10:49 AM MOTORBOAT MECHANIC HELPER Arthralgia, unspecified joint RA QUANTITATIVE Routine 03/15/2024 10:49 AM MOTORBOAT MECHANIC HELPER Arthralgia, unspecified joint HEMOGLOBIN A1C Routine 03/15/2024 10:49 AM MOTORBOAT MECHANIC HELPER Screening for diabetes mellitus C-REACTIVE PROTEIN Routine 03/15/2024 10 :49 AM MOTORBOAT MECHANIC HELPER Arthralgia, unspecified joint Fatigue, unspecified type COLONOSCOPY 05/31/2022 2:47 PM MOTORBOAT MECHANIC HELPER from Last 3 Months or Most Recently Relevant to Health Maintenance Results * COVID-19 MOLECULAR (05/23/2024 2:55 PM MOTORBOAT MECHANIC HELPER) COVID 19 [facility] MOLECULAR Not detected Not detected 05/23/2024 3:23 PM MOTORBOAT MECHANIC HELPER [facility] 05/23/2024 3:23 PM MOTORBOAT MECHANIC HELPER [facility] Comment:Specimen submitted t o [facility] for testing. Other SPECIMEN FROM NASOPHARYNGEAL STRUCTURE / Unknown Non-Blood / Unknown 05/23/2024 2:55 PM MOTORBOAT MECHANIC HELPER 05/23/2024 2:57 PM MOTORBOAT MECHANIC HELPER Kristen ALMODOVAR MICROBIOLOGY Final Result Performing Organization Address City/[facility]/ZIP Co de Phone Number [facility] [address] [place] [address] * (ABNORMAL) INFLUENZA A/B PCR (05/23/2024 2:55 PM MOTORBOAT MECHANIC HELPER) INFLUENZA A PCR Detected(A) 05/23/2024 3:23 PM MOTORBOAT MECHANIC HELPER [facility] INFLUENZA B PCR NOT Detected 05/23/2024 3:23 PM MOTORBOAT MECHANIC HELPER [facility] Other SPECIMEN FROM NASOPHARYNGEAL STRUCTURE / Unknown Non-Blood / Unknown 05/23/2024 2:55 PM MOTORBOAT MECHANIC HELPER 05/23/2024 2:57 PM MOTORBOAT MECHANIC HELPER Kristen ALMODOVAR MICROBIOLOGY Final Result Performing Organization Address [facility] Co de Phone Number [facility] [address] [place] [address] * XR FOOT 3 VIEWS LEFT (04/15/2024 10:30 AM MOTORBOAT MECHANIC HELPER) Anatomical Region Laterality Modality FEET, FOOT L Computed Radiogr aphy 04/15/2024 10:4 9 AM MOTORBOAT MECHANIC HELPER Narrative 04/15/2024 10:49 AM MOTORBOAT MECHANIC HELPER For Patients: As a result of the [...] SHOULDER 4 VIEWS RIGHT (03/15/2024 11:18 AM MOTORBOAT MECHANIC HELPER) Anatomical Region Laterality Modality SHOULDERS, SHOULDER R Computed R adiography 03/16/2024 10:5 4 AM MOTORBOAT MECHANIC HELPER Narrative 03/16/2024 10:54 AM MOTORBOAT MECHANIC HELPER For Patients: As a result of the [...] FOURTH GENERATION W/RFL (QUEST) (03/15/2024 10:49 AM MOTORBOAT MECHANIC HELPER) HIV AG/AB, 4TH GEN NON-REACT SHANTAL NON-REACT SHANTLA [facility] Comment: HIV-1 antigen and HIV-1/HIV-2 antibodies were [...] purpose. For additional information please refer to http://education.Zero9.Easy Metrics/faq/SJP661 (This link is being provided for informational/ educational purposes only.) The performance of this assay has not been clinically validated in patients less than 2 years old. Blood BLOOD SPECIMEN / Unknown 03/15/2024 10:49 AM MOTORBOAT MECHANIC HELPER 03/15/2024 10:50 AM MOTORBOAT MECHANIC HELPER Kain Randhawa MD SEND OUTS Final Result Performing Organization Address [facility]/ZIP Co de Phone Number [employer] [facility] [address] [place] [address], [facility] [address] [place] [address] * ANTINUCLEAR ANTIBODY BY IFA (03/15/2024 10:49 AM MOTORBOAT MECHANIC HELPER) TEENA SCREEN, IFA NEGATIVE NEGATIVE [facility] Comment: TEENA IFA is a first line [...] AC-0: Negative International Consensus on TEENA Patterns (https://doi.org/10.1515/lipd-7276-9982) For additional information, please refer to http://education.Context Matters/faq/TFQ512 (This link is being provided for informational/ educational purposes only.) Blood BLOOD SPECIMEN / Unknown 03/15/2024 10:49 AM MOTORBOAT MECHANIC HELPER 03/15/2024 10:50 AM MOTORBOAT MECHANIC HELPER Kain Randhawa MD CHEMISTRY Final Result [employer] [facility] [address] [place] [address], [facility] [address] [place] [address] * HEMOGLOBIN A1C (03/15/2024 10:49 AM MOTORBOAT MECHANIC HELPER) HEMOGLOBIN A1C 5.4 <5.7 % of total Hgb [facility] Comment: For the purpose of screening for the presence of diabetes: <5.7% Consistent with the absence of diabetes 5.7-6.4% Consistent with increased risk for diabetes (prediabetes) > or =6.5% Consistent with diabetes This assay result is consistent with a decreased risk of diabetes. Currently, no consensus exists regarding use of hemoglobin A1c for diagnosis of diabetes in children. According to [place] Diabetes Association (ADA) guidelines, hemoglobin A1c <7.0% represents optimal control in non- diabetic patients. Different metrics may apply to specific patient populations. Standards of Medical Care in Diabetes(ADA). Blood BLOOD SPECIMEN / Unknown 03/15/2024 10:49 AM MOTORBOAT MECHANIC HELPER 03/15/2024 10:50 AM MOTORBOAT MECHANIC HELPER Kain Randhawa MD CHEMISTRY Final Result [employer] [facility] [address] [place] [address], [facility] [address] [place] [address] * (ABNORMAL) LIPID PANEL W REFLEX MEASURED LDL [[id number]] (03/15/2024 10:49 AM MOTORBOAT MECHANIC HELPER) [facility] Signature CHOLESTEROL, TOTAL 172 <200 mg/dL [...] LDL-C. Jefferson NEGRON et al. JOEL. 2013;310(19): 7053-4151 (http://education.[employer].Easy Metrics/faq/ULM954) CHOL/HDLC RATIO 3.9 <5.0 (calc) [facility] NON HDL CHOLESTEROL 128 <130 mg/dL (calc) [facility] Comment: For patients with diabetes plus 1 major ASCVD risk factor, treating to a non-HDL-C goal of <100 mg/dL (LDL-C of <70 mg/dL) is considered a therapeutic option. Blood BLOOD SPECIMEN / Unknown 03/15/2024 10:49 AM MOTORBOAT MECHANIC HELPER 03/15/2024 10:50 AM MOTORBOAT MECHANIC HELPER Kain Randhawa MD CHEMISTRY Final Result Performing Organization Address City/[facility]/ZIP Co de Phone Number [employer] [facility] [address] [place] [address], [facility] [address] [place] [address] * ANTI HCV (03/15/2024 10:49 AM MOTORBOAT MECHANIC HELPER) HEPATITIS C ANTIBODY NON-REACTI VE NON-REACT SHANTAL [facility] Comment: HCV antibody was non-reactive. There is no laboratory evidence of HCV infection. In most cases, no further action is required. However, if recent HCV exposure is suspected, a test for HCV RNA (test code 01904) is suggested. For additional information please refer to http://education.Ascender Software/faq/DNJ84c1 (This link is being provided for informational/ educational purposes only.) Blood BLOOD SPECIMEN / Unknown 03/15/2024 10:49 AM MOTORBOAT MECHANIC HELPER 03/15/2024 10:50 AM MOTORBOAT MECHANIC HELPER Kain Randhawa MD SEND OUTS Final Result Performing Organization Address City/[facility]/ZIP Co de Phone Number [employer] [facility] [address] [place] [address], [facility] [address] [place] [address] * RA QUANTITATIVE (03/15/2024 10:49 AM MOTORBOAT MECHANIC HELPER) RHEUMATOID FACTOR <10 <14 IU/mL [facility] Blood BLOOD SPECIMEN / Unknown 03/15/2024 10:49 AM MOTORBOAT MECHANIC HELPER 03/15/2024 10:50 AM MOTORBOAT MECHANIC HELPER Kain Randhawa MD SEND OUTS Final Result [employer] [facility] [address] [place] [address], [place] [phone] [facility] [address] [place] [address] * C-REACTIVE PROTEIN (03/15/2024 10:49 AM MOTORBOAT MECHANIC HELPER) C-REACTIVE PROTEIN 4.1 <8.0 mg/L [facility] Blood BLOOD SPECIMEN / Unknown 03/15/2024 10:49 AM MOTORBOAT MECHANIC HELPER 03/15/2024 10:50 AM MOTORBOAT MECHANIC HELPER Kain Randhawa MD CHEMISTRY Final Result [employer] [facility] [address] [place] [address], [place] [phone] [facility] [address] [place] [address] * COLONOSCOPY (05/31/2022 2:47 PM MOTORBOAT MECHANIC HELPER) 05/31/2022 2:47 PM MOTORBOAT MECHANIC HELPER Narrative Transcriptions Mitali Jensen DO - 06/01/2022 [...] adequate candidate for conscious sedation. The endoscope [id number] was passed through the anus with the [...] Last Indicated INFLUENZA 05/23/2024 05/23/2024 Insurance MEDICAID [facility] [address] [place] [address] ACUITY ACUITY Advance Directives * Full Code (Latest Code [...] Comments Code Status Discussion: Discussed Care Teams Mortgage Loan Specialist Relationship Specialty Start Date End Date Kain Randhawa MD [address] [place] [address] PCP - General Family Practice 03/15/24
[2024-05-24] MEDS: ONDANSETRON 2 MG/ML inj 4 MG IVP (21:18)
[2024-05-24] MEDS: KETOROLAC 15 MG/ML inj IVP (21:19)
[2024-05-24] MEDS: 0.9 % SODIUM CHLORIDE 1000 ml 1,000 ML IV (21:20)
[2024-05-24 21:25] LABS: Slide Review Reflex No
[2024-05-24 21:27] LABS: Chloride* 107 mmol/L (96-114)
[2024-05-24 21:28] LABS: Potassium* 3.8 mmol/L (3.6-5.1); Sodium* 139 mmol/L (135-149)
[2024-05-24 21:30] LABS: Creatinine* 0.9 mg/dL (0.5-1.5); Est. Creatinine Clearance* 121.27; Estimated Glomerular Filt Rate 106 ml/min
[2024-05-24 21:31] LABS: Anion Gap 13 mEq/L (7-15); Blood Urea Nitrogen* 13 mg/dL (5-24); Calcium* 9.2 mg/dL (8.4-10.6); Carbon Dioxide* 19 mmol/L (20-32); Glucose* 116 mg/dL (60-115)
== END 2024-05-24 22:48 | disposition home or self-care (01) ==
PROVIDERS: Emergency Provider Emergency Medicine; PCP Family Medicine
DX: J10.1 Influenza due to other identified influenza virus with other respiratory manifestations (principal); E86.0 Dehydration
CPT/HCPCS: 36415; 80048; 85025; 96374; 96375; 99283; 99284; J1885; J2405; J7030